=== PATIENT | female | born 1980 | race African-American/Black ===

== ENCOUNTER 2024-08-13 21:23 | Emergency (ER) | payer SELFPAY ==
[2024-08-13] MEDS ORDERED: cloNIDine HCL 0.1 MG TAB ONE (22:15)
[2024-08-13] MEDS ORDERED: ACETAMINOPHEN 500 MG TAB ONE (22:15)
[2024-08-13 22:49] LABS: PT Prothrombin Time 12.3 SECONDS (9.4-12.5); Protime INR 1.1
[2024-08-13 22:55] LABS: Barbiturates NEGATIVE (NEGATIVE); Benzodiazepines NEGATIVE (NEGATIVE); Cocaine NEGATIVE (NEGATIVE); METHAMPHETAM NEGATIVE (NEGATIVE); Methadone NEGATIVE (NEGATIVE); Opiates NEGATIVE (NEGATIVE); Phencyclidine NEGATIVE (NEGATIVE); Specific Gravity 1.028 (1.005-1.030); THC Cannibis NEGATIVE (NEGATIVE)
[2024-08-13 22:56] LABS: Absolute Basophils 0.1 K/uL (0-0.5); Absolute Eosinophils 0.3 K/uL (0-0.5); Absolute Lymphocytes (CBC) 2.7 K/uL (0.7-4.9); Absolute Monocytes 0.7 K/uL (0.1-1.3); Eosinophils % 3.6 % (0-4.4); Hemoglobin 12.3 g/dL (12.0-15.0); Lymphocytes % 30.8 % (15.3-44.8); MCH 26.8 pg (27.0-35.0); MCHC 32.2 g/dL (32.0-36.0); MCV 83.2 fL (80-100); MPV 7.9 fL (7.6-11.3); Monocytes % 8.1 % (3.3-12.3); Neutrophils % 56.5 % (41.7-73.7); Platelets 363 thou/uL (152-406); RBC Red Blood Cell Count 4.57 M/uL (3.86-4.86); Red Cell Distribution Width 15.4 % (12.1-15.2)
[2024-08-13 22:59] LABS: Specific Gravity 1.028 (1.005-1.030); Sqamous Epithelial <5 /HPF (None Seen); Urine Bacteria None Seen /HPF (<20); Urine Bilirubin NEGATIVE (Negative); Urine Blood 2+ (Negative); Urine Clarity Clear (Clear); Urine Color Light-Yellow (Yellow); Urine Culture Reflex Order NOT NEEDED; Urine Glucose NEGATIVE (Negative); Urine Ketones TRACE (Negative); Urine Microscopic Reflex YN ORDER UMIC; Urine Mucus Slight /HPF (None Seen); Urine Nitrite NEGATIVE (Negative); Urine Protein TRACE (Negative); Urine Urobilinogen 1+ (Normal); Urine WBC <5 /HPF (<5); Urine pH 6.5 (5.0-7.0)
[2024-08-13 23:14] LABS: ALT/SGPT 17 U/L (13-56); AST/SGOT 13 U/L (15-37); Albumin 3.5 g/dL (3.4-5.0); Albumin/Globulin Ratio 0.7 (1.1-1.8); Alkaline Phosphatase 58 U/L (45-117); Anion Gap 8.6 mEq/L (5.0-15.0); BUN Blood Urea Nitrogen 11 mg/dL (7-18); Bicarbonate 26 mEq/L (21-32); Bilirubin Direct < 0.2 mg/dL (0-0.2); Bilirubin Total 0.2 mg/dL (0.2-1.0); Globulin 4.7 g/dL (2.3-3.5); Glomerular Filtration Rate 76 ml/min (=/>90); Glucose Level 91 mg/dL (74-106); Magnesium 2.2 mg/dL (1.6-2.4); NT PRO-BNP 19 pg/mL (<125); Potassium 3.6 mEq/L (3.5-5.1); Protein, Total 8.2 g/dL (6.4-8.2); Sodium Level 138 mEq/L (136-145); Troponin High Sensitivity 8.3 pg/mL (<58.9)
[2024-08-13] MEDS ORDERED: lisinopriL 20 MG TAB ONE (23:22)
[2024-08-14] MEDS ORDERED: hydroCHLOROthiazide 25 MG TAB ONE (00:12)
--- NOTE | 2024-08-14 00:12 | RAD REPORT ---
EXAM: XR Chest, 1 View CLINICAL HISTORY: Chest pain. TECHNIQUE: Frontal view of the chest. COMPARISON: No relevant prior studies available. FINDINGS: Lungs: Unremarkable. No consolidation. Pleural space: Unremarkable. No pneumothorax. Heart: Unremarkable. No cardiomegaly. Mediastinum: Unremarkable. Normal mediastinal contour. Bones/joints: Unremarkable. No acute fracture. IMPRESSION: No acute disease. Electronically signed by: Archana Willson MD 08/14/2024 12:01 AM CDT Due to temporary technical issues with the PACS/MiniLuxe reporting system, reports are being jasvir d by the in-house radiologist without review as a courtesy to ensure prompt reporting the interpreting radiologist is fully responsible for the content of the report. Transcribed Date/Time: 08/14/2024 12:11 AM
--- NOTE | 2024-08-14 00:23 | RAD REPORT ---
EXAM: CT Head Without Intravenous Contrast CLINICAL HISTORY: Headache. TECHNIQUE: Axial computed tomography images of the head/brain without intravenous contrast. Sagittal and coron al reformatted images were created and reviewed. This CT exam was performed using one or more of the following dose reduction techniques: automated exposure control, adjustment of the mA and/or kV according to patient size, and/or use of iterative reconstruction technique. COMPARISON: No relevant prior studies available. FINDINGS: Brain: Unremarkable. No hemorrhage. No significant white matter disease. No edema. Ventricles: Unremarkable. No ventriculomegaly. Bones/joints: Unremarkable. No acute fracture. Soft tissues: Unremarkable. Sinuses: Unremarkable as visualized. No acute sinusitis. Mastoid air cells: Unremarkable as visualized. No mastoid effusion. Sella: Note is made of an empty sella. IMPRESSION: 1. No acute intracranial or extra-axial abnormality. 2. Note is made of an empty sella. This is nonspecific and can be seen in asymptomatic patients. In the appropriate clinical setting, this can be seen in patients with idiopathic intracranial hypertension. Electronically signed by: Archana Willson MD 08/14/2024 12:04 AM [facility] Due to temporary technical issues with the PACS/iStoryTime reporting system, reports are being jasvir d by the in-house radiologist without review as a courtesy to ensure prompt reporting the interpreting radiologist is fully responsible for the content of the report. Transcribed Date/Time: 08/14/2024 12:23 AM
--- NOTE | 2024-08-14 00:26 | ER ---
Nurse's Notes [facility] Name: She Mata Age: 44 yrs Sex: Female : 1980 Arrival Date: 08/13/2024 Time: 21:23 Bed 15 Private MD: Diagnosis: Hypertensive heart disease without heart failure;Headache Presentation: 08/13 21:51 Chief complaint: Patient states: Pt states having headache, blurred vision, and dd2 dizziness today and went to [place] urgent care, was sent here for evaluation due to her BP. Pt states ran out of metoprolol this past month. Coronavirus screen: At this time, the client does not indicate any symptoms associated with coronavirus-19. Ebola Screen: No symptoms or risks identified at this time. Initial Sepsis Screen: Does the patient meet any 2 criteria? No. Patient's initial sepsis screen is negative. Does the patient have a suspected source of infection? No. Patient's initial sepsis screen is negative. Risk Assessment: Do you want to hurt yourself or someone else? Patient reports no desire to harm self or others. Onset of symptoms was August 13, 2024. 21:51 Method Of Arrival: Ambulatory dd2 21:51 Acuity: SAIGE 3 dd2 Triage Assessment: 21:53 Headache History: The patient has had previous headaches and this one is similar to dd2 previous episodes. General: Appears in no apparent distress. Behavior is calm, cooperative, appropriate for age. Pain: Complains of pain in forehead Pain currently is 7 out of 10 on a pain scale. Pain began gradually, Also complains of photophobia. Neuro: Level of Consciousness is awake, alert, obeys commands, Oriented to person, place, time, situation, Appropriate for age Litharge Supervisor are equal bilaterally Moves all extremities. Gait is steady, Speech is normal, Facial symmetry appears normal, Intact. 21:53 Cardiovascular: Denies chest pain. 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 - Infectious Disease History:: Denies. - Social history:: Smoking status: Patient denies any tobacco usage or history of. Screenin:19 [facility] ED Fall Risk Assessment (Adult) History of falling in the last 3 months, mb9 including since admission No falls in past 3 months (0 pts) Confusion or Disorientation No (0 pts) Intoxicated or Sedated No (0 pts) Impaired Gait No (0 pts) Mobility Assist Device Used No (0 pt) Altered Elimination No (0 pt) Score/Fall Risk Level 0 - 2 = Low Risk Oriented to surroundings, Maintained a safe environment, Educated pt \T\ family on fall prevention, incl call for assistance when getting out of bed. Abuse screen: Denies threats or abuse. Nutritional screening: No deficits noted. Tuberculosis screening: No symptoms or risk factors identified. Assessment: 22:19 General: Appears in no apparent distress. Behavior is calm, cooperative. Pain: mb9 Complains of pain in head Pain does not radiate. Pain currently is 7 out of 10 on a pain scale. Quality of pain is described as throbbing, Pain began gradually, Is continuous. Neuro: Weldon Agitation-Sedation Scale (RASS): 0 - Alert and Calm Level of Consciousness is awake, alert, obeys commands, Oriented to person, place, time, situation, Appropriate for age. Neuro: Reports headache. Cardiovascular: Patient's skin is warm and dry. Respiratory: Airway is patent Respiratory effort is even, unlabored, Respiratory pattern is regular, symmetrical. GI: Abdomen is flat, non-distended. : No signs and/or symptoms were reported regarding the genitourinary system. EENT: No signs and/or symptoms were reported regarding the EENT system. Derm: Skin is pink, warm \T\ dry. Musculoskeletal: Range of motion: intact in all extremities. 08/14 00:00 Reassessment: Pt denied Lisinopril due to having adverse reaction, swelling of mouth. mb9 ERP notified. Vital Signs: 08/13 21:51 BP 203 / 121; Pulse 58; Resp 16; Temp 97.3; Pulse Ox 100% ; Weight 91.63 kg; Height 5 dd2 ft. 8 in. ; Pain 7/10; 22:19 BP 176 / 107; Pulse 64; Resp 18; Pulse Ox 99% on R/A; mb9 23:02 BP 163 / 98; Pulse 59; Resp 16; Pulse Ox 100% on R/A; mb9 23:35 BP 135 / 93; Pulse 56; Resp 16; Pulse Ox 98% on R/A; mb9 08/14 00:42 BP 125 / 91; Pulse 58; Resp 16; Temp 98.1; Pulse Ox 100% ; dd2 08/13 21:51 Body Mass Index 30.71 (91.63 kg, 172.72 cm) dd2 08/13 21:51 Pain Scale: Adult dd2 ED Course: 08/13 21:24 Patient arrived in ED. im 21:35 Kin Reynoso PA is PHCP. cp 21:35 Rogelio Ramirez MD is Attending Physician. cp 21:53 Triage completed. dd2 21:53 Arm band placed on left wrist. Patient placed in an internal wait recliner, in view of dd2 staff members, on pulse oximetry. 21:58 Yancy Jackson RN is Primary Nurse. mb9 22:18 Initial lab(s) drawn, by me, sent to lab. EKG done, by ED staff, reviewed by Kin MANTILLA. 22:18 Initial lab(s) drawn, by me, sent to lab. Inserted saline lock: 22 gauge in right mb9 antecubital area, using aseptic technique. Blood collected. Flushed with 10 mL NS. 22:20 Placed in gown. Bed in low position. Call light in reach. Side rails up X 1. Provided mb9 Education on: press call light if needing anything. Client placed on continuous cardiac and pulse oximetry monitoring. NIBP monitoring applied. athletic monitor on. 22:20 No provider procedures requiring assistance completed. mb9 22:59 XRAY Chest (1 view) In Process Unspecified. EDMS 23:[address] via stretcher. mb9 23:11 CT Head Brain wo Cont In Process Unspecified. EDMS 08/14 00:00 Report given to AKI Barrera. mb9 00:42 IV discontinued, intact, bleeding controlled, No redness/swelling at site. Pressure dd2 dressing applied. Administered Medications: 08/13 22:18 Drug: cloNIDine PO 0.2 mg PO once Route: PO; mb9 23:03 Follow up: Response: No adverse reaction mb9 22:18 Drug: Acetaminophen PO 1000 mg PO once Route: PO; mb9 23:03 Follow up: Response: No adverse reaction mb9 23:24 Not Given (Patient Refused): [id number] mg PO once mb9 08/14 00:14 Drug: Hydrochlorothiazide PO 12.5 mg PO once Route: PO; dd2 00:44 Follow up: Response: No adverse reaction dd2 Medication: 08/13 22:21 VIS not applicable for this client. mb9 Outcome: 08/14 00:25 Discharge ordered by . stefan 00:42 Discharged to home ambulatory, dd2 00:42 Condition: stable 00:42 Discharge instructions given to patient, Instructed on discharge instructions, follow up and referral plans. medication usage, Demonstrated understanding of instructions, follow-up care, medications, Prescriptions given X 1, 00:45 Patient left the ED. dd2 Signatures: Dispatcher [employer] EDMS Kin Reynoso PA PA cp Wilkerson, Mary Beth RN RN mb9 Paulette Kaplan DIANA RN RN dd2
--- NOTE | 2024-08-14 00:26 | EDPHYS ---
Physician Documentation [facility] Name: She Mata Age: 44 yrs Sex: Female : 1980 Arrival Date: 08/13/2024 Time: 21:23 Bed 15 Private MD: ED Physician Rogelio Ramirez HPI: 08/13 22:00 This 44 yrs old Black Female presents to ER via Ambulatory with complaints of Headache, cp High Blood Pressure. 22:00 The patient complains of pain to the top of head and forehead. The patient describes cp the headache as aching. Onset: The symptoms/episode began/occurred today. 22:00 Associated signs and symptoms: Pertinent positives: dizziness, Photophobia Pertinent cp negatives: altered mental status, fever, neck stiffness, paresthesias, vision loss, vomiting, weakness. Severity of symptoms: in the emergency department the pain is unchanged, despite home interventions. The patient has been recently seen at an urgent care, for similar complaints, and was sent to the [facility] Emergency Department for further evaluation. Patient reports running out of prescribed blood pressure medication, Metoprolol earlier this month. 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 - Infectious Disease History:: Denies. - Social history:: Smoking status: Patient denies any tobacco usage or history of. ROS: 22:05 Constitutional: Negative for body aches, chills, fever, poor PO intake, cp 22:05 ENT: Negative for drainage from ear(s), ear pain, sore throat, difficulty swallowing, cp difficulty handling secretions, 22:05 Cardiovascular: Negative for chest pain, edema, palpitations, 22:05 Respiratory: Negative for cough, shortness of breath, wheezing, 22:05 Abdomen/GI: Negative for abdominal pain, nausea, vomiting, and diarrhea, 22:05 Neuro: Positive for dizziness, headache, Negative for altered mental status, seizure activity, speech changes, syncope, weakness, 22:05 Eyes: Positive for blurry vision, Negative for pain, redness, vision loss, cp 22:05 : Negative for urinary symptoms, cp 22:05 All other systems are negative, Exam: 22:10 Constitutional: The patient appears in no acute distress, alert, awake, cp non-diaphoretic, non-toxic, well developed, well nourished, uncomfortable, 22:10 Head/Face: Normocephalic, atraumatic. cp 22:10 Eyes: Periorbital structures: appear normal, Pupils: equal, round, and reactive to light and accomodation, Extraocular movements: intact throughout, Conjunctiva: normal, no exudate, no injection, Sclera: no appreciated abnormality, Lids and lashes: appear normal, bilaterally, 22:10 ENT: External ear(s): are unremarkable, Nose: is normal, Mouth: Lips: moist, Oral mucosa: pink and intact, moist, Posterior pharynx: Airway: no evidence of obstruction, patent, 22:10 Neck: ROM/movement: is normal, is supple, without pain, no range of motions limitations, no nuchal rigidity, 22:10 Chest/axilla: Inspection: normal, 22:10 Cardiovascular: Rate: bradycardic, Rhythm: regular, Edema: is not appreciated, JVD: is not appreciated, 22:10 Respiratory: the patient does not display signs of respiratory distress, Respirations: normal, no use of accessory muscles, no retractions, labored breathing, is not present, Breath sounds: are clear throughout, no decreased breath sounds, no stridor, no wheezing, 22:10 Abdomen/GI: Inspection: abdomen appears normal, Palpation: abdomen is soft and non-tender, in all quadrants, 22:10 Back: pain, is absent, ROM is normal, 22:10 Neuro: Orientation: is normal, Mentation: is normal, Cerebellar function: is grossly normal, Motor: moves all fours, strength is normal, Sensation: is normal, 22:12 ECG was reviewed by the Attending Physician. cp Vital Signs: 21:51 BP 203 / 121; Pulse 58; Resp 16; Temp 97.3; Pulse Ox 100% ; Weight 91.63 kg; Height 5 dd2 ft. 8 in. ; Pain 7/10; 22:19 BP 176 / 107; Pulse 64; Resp 18; Pulse Ox 99% on R/A; mb9 23:02 BP 163 / 98; Pulse 59; Resp 16; Pulse Ox 100% on R/A; mb9 23:35 BP 135 / 93; Pulse 56; Resp 16; Pulse Ox 98% on R/A; mb9 08/14 00:42 BP 125 / 91; Pulse 58; Resp 16; Temp 98.1; Pulse Ox 100% ; dd2 08/13 21:51 Body Mass Index 30.71 (91.63 kg, 172.72 cm) dd2 08/13 21:51 Pain Scale: Adult dd2 MDM: 08/13 21:59 Medical Screening Exam initiated cp 23:00 Differential diagnosis: cluster headache, cerebral vascular accident, hypertensive cp headache, hyponatremia, intracerebral hemorrhage, migraine, subarachnoid bleed, subdural hematoma, tension headache. 08/14 00:25 Data reviewed: vital signs, nurses notes, lab test result(s), EKG, radiologic studies, cp CT scan, plain films, and as a result, I will discharge patient. 00:25 I considered the following discharge prescriptions or medication management in the emergency department Medications were administered in the Emergency Department. See MAR. Independent interpretation of the following test(s) in the Emergency Department EKG: See my EKG interpretation above. Care significantly affected by the following chronic conditions: Hypertension. Counseling: I had a detailed discussion with the patient and/or guardian regarding the historical points, exam findings, and any diagnostic results supporting the discharge/admit diagnosis, lab results, radiology results, the need for outpatient follow up, a family practitioner, to return to the emergency department if symptoms worsen or persist or if there are any questions or concerns that arise at home. Response to treatment: the patient's symptoms have markedly improved after treatment, and as a result, I will discharge patient. 08/13 21:59 Order name: Basic Metabolic Panel; Complete Time: 23:19 08/13 23:19 Interpretation: Normal except: GFR 76. 08/13 21:59 Order name: CBC with Diff; Complete Time: 23:19 08/13 21:59 Order name: LFT's; Complete Time: 23:19 cp 08/13 21:59 Order name: Magnesium; Complete Time: 23:19 08/13 21:59 Order name: NT PRO-BNP; Complete Time: 23:19 cp 08/13 21:59 Order name: PT-INR; Complete Time: 23:19 cp 08/13 21:59 Order name: Troponin HS; Complete Time: 23:19 cp 08/13 21:59 Order name: Urinalysis w/ reflexes; Complete Time: 23:19 cp 08/13 21:59 Order name: Test, Urine; Complete Time: 23:19 cp 08/13 21:59 Order name: UDS; Complete Time: 23:19 cp 08/13 21:59 Order name: XRAY Chest (1 view) cp 08/13 21:59 Order name: CT Head Brain wo Cont cp 08/13 21:59 Order name: Cardiac monitoring; Complete Time: 22:00 cp 08/13 21:59 Order name: EKG - Nurse/Tech; Complete Time: 22:12 cp 08/13 21:59 Order name: IV Saline Lock; Complete Time: 22:12 cp 08/13 21:59 Order name: Labs collected and sent; Complete Time: 22:12 08/13 21:59 Order name: O2 Per Protocol; Complete Time: 22:00 cp 08/13 21:59 Order name: O2 Sat Monitoring; Complete Time: 22:00 cp EC/19 22:12 Rate is 63 beats/min. Rhythm is regular. NM interval is normal. QRS interval is normal. cp QT interval is normal. T waves are Inverted in lead aVR. Interpreted by me. Reviewed by me. Administered Medications: 22:18 Drug: cloNIDine PO 0.2 mg PO once Route: PO; mb9 23:03 Follow up: Response: No adverse reaction mb9 22:18 Drug: Acetaminophen PO 1000 mg PO once Route: PO; mb9 23:03 Follow up: Response: No adverse reaction mb9 23:24 Not Given (Patient Refused): [id number] mg PO once mb9 08/14 00:14 Drug: Hydrochlorothiazide PO 12.5 mg PO once Route: PO; dd2 00:44 Follow up: Response: No adverse reaction dd2 Disposition: 06:54 Co-signature as Attending Physician, Rogelio Ramirez MD I agree with the assessment sp4 and plan of care. I reviewed the patient's care provided by the Advanced Practice Provider and agree with the diagnosis and treatment plan. 08/15 00:26 Chart complete. cp Disposition Summary: 08/14/24 00:25 Discharge Ordered Notes: Location: Home cp Problem: chronic cp Symptoms: have improved cp Condition: Stable cp Diagnosis - Hypertensive heart disease without heart failure cp - Headache cp Followup: cp - With: Private Physician - When: 1 week - Reason: Recheck today's complaints Discharge Instructions: - Discharge Summary Sheet cp - Hypertension, Adult cp - Aspirin and Your Heart cp - Form - Blood Pressure Record Sheet cp - How to Take Your Blood Pressure cp Forms: - Medication Reconciliation Form cp - Antibiotic Education cp - Prescription Opioid Use cp - Patient Portal Instructions cp - Leadership Thank You Letter cp - Work release form dd2 Prescriptions: - Hydrochlorothiazide 25 mg Oral Tablet - take 1 tablet ORAL route once daily .; 30 tablet; Refills: 0, Product Selection cp Permitted Signatures: Dispatcher [employer] EDID Kin Reynoso PA PA cp Wilkerson, Mary Beth RN RN mb9 Rogelio Ramirez MD MD sp4 MADONNA PARKS RN RN dd2 Corrections: (The following items were deleted from the chart) 08/13 21:59 21:59 BASIC METABOLIC PANEL+C.LAB.BRZ ordered. EDID EDMS 21:59 21:59 CBC+H.LAB.BRZ ordered. EDID EDMS 21:59 21:59 HEPATIC FUNCTION+C.LAB.BRZ ordered. EDID EDMS 21:59 21:59 MAGNESIUM+C.LAB.BRZ ordered. EDID EDMS 21:59 21:59 PROBNP+C.LAB.BRZ ordered. EDID EDMS 21:59 21:59 PROTIME (+INR)+COAG.LAB.BRZ ordered. EDID EDMS 21:59 21:59 Troponin High Sensitivity+C.LAB.BRZ ordered. EDID EDMS 21:59 21:59 Urinalysis+U.LAB.BRZ ordered. EDID EDMS 21:59 21:59 Test, Urine+UC.LAB.BRZ ordered. EDID EDMS 21:59 21:59 URINE DRUG SCREEN+UC.LAB.BRZ ordered. EDID EDMS 22:00 21:59 Head Brain Wo Cont+CT.RAD.BRZ ordered. EDID EDID 08/14 23:58 08/13 22:05 Neuro: Positive for headache, Negative for altered mental status, cp dizziness, seizure activity, syncope, weakness, cp 08/14 23:58 08/13 22:05 Eyes: Negative for injury, pain, redness, and discharge, cp cp 08/14 23:58 08/13 22:05 All other systems are negative, cp cp 08/15 00:21 08/13 22:00 Patient reports running out of prescribed blood pressure medication, cp Metoprolol earlier this month. Patient reports she is in town working and will be here for several more weeks. cp
[2024-08-14 06:23] VITALS: BP 125/91; TEMP 98.1; O2SAT 100
--- NOTE | 2024-08-16 12:58 | EKG ---
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
== END 2024-08-14 00:45 | disposition home or self-care (01) ==
LOC: ER 21:23
DX: I11.9 Hypertensive heart disease without heart failure (principal)
CPT/HCPCS: 36415; 70450; 71045; 80048; 80076; 80307; 81001; 81025; 83735; 83880; 84484; 85025; 85610; 93005; 99285